=== PATIENT | female | born 1945 | race Caucasian/White ===

== ENCOUNTER 2019-07-10 13:04 | Inpatient (IN) | payer MEDICARE, OTHER ==
[~2019-07-10] VITALS: Ht 149.9 cm; Wt 48.6 kg
[2019-07-10 14:48] LABS: CLARITY URINE TURBID (CLEAR); COLOR URINE DARK YELLOW (YELLOW); KETONES URINE TRACE (NEGATIVE); LEUKOCYTE ESTERASE URINE 3+ (NEGATIVE); NITRITE URINE NEGATIVE (NEGATIVE); OCCULT BLOOD URINE 3+ (NEGATIVE); PROTEIN URINE 2+ (NEGATIVE); SPECIFIC GRAVITY URINE 1.016 (1.005-1.030)
[2019-07-10 14:50] LABS: HEMATOCRIT. 39.6 % (36.0-48.0); HEMOGLOBIN. 13.3 g/dL (12.0-16.0); MEAN CORPUSCULAR HEMOGLOBIN 29.4 pg (28.0-32.0); MEAN CORPUSCULAR VOLUME 87.6 fL (81.0-99.0); MEAN PLATELET VOLUME 9.7 fl (7.4-10.4); PLATELET 276 x1000/uL (130-400); RED BLOOD CELL COUNT 4.53 mill/uL (4.2-5.4); RED CELL DISTRIBUTION WIDTH 15.6 % (11.6-14.6)
[2019-07-10 14:55] LABS: CHLORIDE 97 mEq/L (98-107)
[2019-07-10 14:56] LABS: INR 1.1; PROTHROMBIN TIME 11.2 sec (9.6-11.0)
[2019-07-10] MEDS ORDERED: SODIUM CHLORIDE 0.9% 1,000 ML IV ONE (15:38)
[2019-07-10] MEDS ORDERED: KETOROLAC 30MG/ML VIAL IV ONE (15:45)
[2019-07-10] MEDS ORDERED: CEFTRIAXONE 1 G PREMIX 50 ML IV ONE (15:45)
[2019-07-10] MEDS ORDERED: CLONIDINE 0.1MG TABLET PO PRN (16:45)
[2019-07-10] MEDS ORDERED: HYDROCODONE/ACETAMINOPHEN 10/325MG TABLET PO PRN (16:45)
[2019-07-10] MEDS ORDERED: GUAIFENESIN 200MG/10ML SUGAR FREE UDC PO PRN (16:45)
[2019-07-10] MEDS ORDERED: MORPHINE SULFATE 2 MG/ML CPJ (NOT FOR IM USE) IV PRN (16:45)
[2019-07-10] MEDS ORDERED: LORAZEPAM 0.5MG TABLET PO PRN (16:45)
[2019-07-10] MEDS ORDERED: IPRATROPIUM/ALBUTEROL 0.5-3(2.5)MG/3ML NEB NEB PRN (16:45)
[2019-07-10] MEDS ORDERED: ZOLPIDEM TARTRATE 5MG TABLET PO PRN (16:45)
[2019-07-10] MEDS ORDERED: ACETAMINOPHEN 325MG TABLET PO PRN (16:45)
[2019-07-10] MEDS ORDERED: NITROGLYCERIN 0.4MG TABLET SL SL PRN (16:45)
[2019-07-10] MEDS ORDERED: ONDANSETRON HCL 4MG/2ML INJ IV PRN (16:45)
[2019-07-10] MEDS ORDERED: LEVOFLOXACIN 500MG PREMIX 100 ML IV SCH (16:45)
[2019-07-10] MEDS ORDERED: MAGNESIUM/ALUMINUM HYDROXIDE/SIMETHICONE 30ML UDC PO PRN (16:45)
[2019-07-10] MEDS ORDERED: NA PHOS,M-B/NA PHOS,DI-BA ENEMA 118ML PR PRN (16:45)
[2019-07-10] MEDS ORDERED: DOCUSATE SODIUM 100MG CAPSULE PO PRN (16:45)
[2019-07-10 16:49] LABS: PLATELET ESTIMATE NORMAL
[2019-07-10 23:04] LABS: CREATINE KINASE MB FRACTION 3.2 ng/mL (0.5-3.6)
[2019-07-11] VITALS (12 sets, daily range): BP systolic 91–136; BP diastolic 15–75
[2019-07-11] MEDS: MEROPENEM 1,000 MG in SODIUM CHLORIDE 0.9% 100 ML IV SCH (03:06)
[2019-07-11 06:40] LABS: HEMATOCRIT. 30.6 % (36.0-48.0); HEMOGLOBIN. 10.5 g/dL (12.0-16.0); MEAN CORPUSCULAR HEMOGLOBIN 29.8 pg (28.0-32.0); MEAN CORPUSCULAR VOLUME 86.6 fL (81.0-99.0); MEAN PLATELET VOLUME 9.6 fl (7.4-10.4); PLATELET 189 x1000/uL (130-400); RED BLOOD CELL COUNT 3.53 mill/uL (4.2-5.4); RED CELL DISTRIBUTION WIDTH 15.3 % (11.6-14.6)
[2019-07-11 07:14] LABS: CHLORIDE 111 mEq/L (98-107)
[2019-07-11 07:33] LABS: CREATINE KINASE 73 IU/L (26-192)
[2019-07-11 07:35] LABS: CREATINE KINASE MB FRACTION 2.8 ng/mL (0.5-3.6)
[2019-07-11] MEDS: ASCORBIC ACID 500 MG TABLET PO SCH ×2 (08:05→21:54)
[2019-07-11] MEDS: ZINC SULFATE 220 MG ( 50 ) CAPSULE PO SCH (08:05)
[2019-07-11] MEDS ORDERED: HYDR-3513 PO (09:00)
[2019-07-11] MEDS ORDERED: FAMOTIDINE 20MG TABLET PO SCH (09:00)
[2019-07-11] MEDS ORDERED: FERR-71 PO (09:00)
[2019-07-11] MEDS ORDERED: GABA-531 PO (09:00)
[2019-07-11] MEDS ORDERED: CLON0.5T23 PO (09:00)
[2019-07-11] MEDS ORDERED: ATOR10TA69 PO (09:00)
[2019-07-11] MEDS ORDERED: ALPR-340 PO (09:00)
[2019-07-11] MEDS ORDERED: MECL12.584 PO (09:00)
[2019-07-11] MEDS ORDERED: METO5SOL19 PO (09:00)
[2019-07-11] MEDS ORDERED: CALC600T12 PO (09:00)
[2019-07-11] MEDS ORDERED: OMEP1CAP2 PO (09:00)
[2019-07-11] MEDS ORDERED: CEFTRIAXONE 1 G PREMIX 50 ML IV SCH (09:00)
[2019-07-11] MEDS ORDERED: OMEP40CA34 PO (09:00)
[2019-07-11] MEDS ORDERED: HYDR-459 PO (09:00)
[2019-07-11] MEDS ORDERED: LOSA25TA26 PO (09:00)
[2019-07-11] MEDS ORDERED: VALA500T55 MT (09:00)
[2019-07-11 09:06] LABS: *AMPHETAMINES SCREEN URINE NEGATIVE (NEGATIVE); *BARBITURATES SCREEN URINE NEGATIVE (NEGATIVE); *BENZODIAZEPINES SCREEN URINE NEGATIVE (NEGATIVE)
[2019-07-11 09:07] LABS: *COCAINE SCREEN URINE NEGATIVE (NEGATIVE); CANNABINOID URINE SCREEN PRESUMTIVE POSITIVE (NEGATIVE); METHADONE URINE SCREEN NEGATIVE (NEGATIVE); OPIATES URINE SCREEN PRESUMTIVE POSITIVE (NEGATIVE)
[2019-07-11 09:08] LABS: PHENCYCLIDINE URINE SCREEN NEGATIVE (NEGATIVE)
[2019-07-11] MEDS ORDERED: ONDANSETRON HCL 4MG/2ML INJ IV PRN (09:15)
[2019-07-11] MEDS: METHYLPREDNISOLONE SOD SUCC 125 MG/2 ML VIAL IV SCH ×2 (10:10→14:00)
[2019-07-11] MEDS ORDERED: POTASSIUM CHLORIDE 20MEQ/PACKET PO SCH (11:00)
[2019-07-11] MEDS: SUCRALFATE 1 G/10 ML UDC PO SCH ×4 (13:37→21:53)
[2019-07-11] MEDS: OMEPRAZOLE 20MG CAPSULE EXTENDED RELEASE PO SCH ×3 (13:37→21:54)
[2019-07-11] MEDS: GABAPENTIN 300MG CAPSULE PO SCH ×2 (13:38→21:53)
[2019-07-11] MEDS: FERROUS SULFATE 300MG/5ML UDC PO SCH ×2 (13:38→17:20)
[2019-07-11 14:06] LABS: PLATELET ESTIMATE NORMAL
[2019-07-11] MEDS ORDERED: IOHEXOL-300 50 ML BOTTLE IV ONE (14:32)
[2019-07-11] MEDS ORDERED: IOPAMIDOL 20 ML VIAL IT ONE (14:58)
[2019-07-11] MEDS: ENOXAPARIN 30MG/0.3ML SYR SUBCUT SCH (17:22)
[2019-07-11] MEDS: ATORVASTATIN CALCIUM 20MG TABLET PO SCH (21:54)
[2019-07-12] VITALS (11 sets, daily range): BP systolic 92–129; BP diastolic 27–72
[2019-07-12] MEDS: MEROPENEM 1,000 MG in SODIUM CHLORIDE 0.9% 100 ML IV SCH (03:51)
[2019-07-12] MEDS: SUCRALFATE 1 G/10 ML UDC PO SCH ×4 (06:26→22:07)
[2019-07-12] MEDS: GABAPENTIN 300MG CAPSULE PO SCH ×3 (06:27→22:06)
[2019-07-12] MEDS: OMEPRAZOLE 20MG CAPSULE EXTENDED RELEASE PO SCH ×2 (06:27→22:06)
[2019-07-12] MEDS: ASCORBIC ACID 500 MG TABLET PO SCH ×2 (07:53→22:06)
[2019-07-12] MEDS: FERROUS SULFATE 300MG/5ML UDC PO SCH ×3 (07:55→17:20)
[2019-07-12] MEDS: ZINC SULFATE 220 MG ( 50 ) CAPSULE PO SCH (08:01)
[2019-07-12] MEDS: ENOXAPARIN 30MG/0.3ML SYR SUBCUT SCH (08:02)
[2019-07-12] MEDS: POLYVINYL ALCOHOL OPHTH DROPS 15ML BOTHEYE SCH ×2 (14:34→17:14)
[2019-07-12] MEDS: ATORVASTATIN CALCIUM 20MG TABLET PO SCH (22:07)
[2019-07-13] VITALS (8 sets, daily range): BP systolic 88–140; BP diastolic 59–77
[2019-07-13] MEDS ORDERED: MEROPENEM 1,000 MG in SODIUM CHLORIDE 0.9% 100 ML IV SCH (04:00)
[2019-07-13] MEDS: SUCRALFATE 1 G/10 ML UDC PO SCH ×2 (06:21→11:50)
[2019-07-13] MEDS: GABAPENTIN 300MG CAPSULE PO SCH (06:22)
[2019-07-13] MEDS: OMEPRAZOLE 20MG CAPSULE EXTENDED RELEASE PO SCH (06:22)
[2019-07-13] MEDS: ASCORBIC ACID 500 MG TABLET PO SCH (09:00)
[2019-07-13] MEDS: POLYVINYL ALCOHOL OPHTH DROPS 15ML BOTHEYE SCH ×2 (09:09→13:22)
[2019-07-13] MEDS: ENOXAPARIN 30MG/0.3ML SYR SUBCUT SCH (09:11)
[2019-07-13] MEDS: ZINC SULFATE 220 MG ( 50 ) CAPSULE PO SCH (09:11)
[2019-07-13] MEDS: FERROUS SULFATE 300MG/5ML UDC PO SCH ×2 (09:11→12:20)
== END 2019-07-13 14:12 | disposition home or self-care (01) | DRG 871 ==
LOC: ER 13:57 → 3WST 16:10 → EDBEDREQ 16:15 → SUPCPDRO 16:27 → ENRESERV 20:01
PROVIDERS: ADMIT Internal Medicine; ATTEND Internal Medicine
DX: A41.9 Sepsis, unspecified organism (principal); N17.0 Acute kidney failure with tubular necrosis; N39.0 Urinary tract infection, site not specified; E87.1 Hypo-osmolality and hyponatremia; K52.9 Noninfective gastroenteritis and colitis, unspecified; B96.20 Unspecified Escherichia coli [E. coli] as the cause of diseases classified elsewhere; E78.00 Pure hypercholesterolemia, unspecified; I10 Essential (primary) hypertension; G89.29 Other chronic pain; K57.90 Diverticulosis of intestine, part unspecified, without perforation or abscess without bleeding; M54.9 Dorsalgia, unspecified; Z90.710 Acquired absence of both cervix and uterus
CPT/HCPCS: 36415; 71045; 74176; 74430; 80061; 80305; 81003; 82550; 82553; 83036; 83605; 84145; 84484; 87186; 93005; 93306; 93970; 96365; 97162; 97166; 97535; 99291; J0696; J1650; J2185; J2930; J7030; J7050; J7620; Q9966; Q9967; A4315